=== PATIENT | female | born 1950 | race Caucasian/White ===

== ENCOUNTER 2017-08-21 09:40 | Day surgery (SDC) | payer OTHER ==
[~2017-08-21 09:40] MED LIST: LEVSOD75 PO
[2017-08-24] MEDS ORDERED: IBUP800 PO (14:38)
== END 2017-08-21 23:12 | disposition home or self-care (01) ==
LOC: MOI MAM 09:40
PROC: BH01ZZZ Plain Radiography of Left Breast (ICD-10-PCS; principal; 2017-08-21)
DX: D05.12 Intraductal carcinoma in situ of left breast (principal)
CPT/HCPCS: 19281

== ENCOUNTER 2017-08-27 08:11 | Day surgery (SDC) | payer OTHER ==
[~2017-08-27] VITALS: Ht 162.6 cm; Wt 87.1 kg
[~2017-08-27 08:11] MED LIST changes: +IBUP800 PO
== END 2017-08-27 22:44 | disposition home or self-care (01) ==
LOC: ORSCMMR 08:11 → NM 08:11 → ORSCMMR 22:44
PROVIDERS: Surgery
PROC: 07B60ZX Excision of Left Axillary Lymphatic, Open Approach, Diagnostic (ICD-10-PCS; principal; 2017-08-27 11:00)
PROC: 0HBU0ZZ Excision of Left Breast, Open Approach (ICD-10-PCS; principal; 2017-08-27 11:00)
DX: D05.12 Intraductal carcinoma in situ of left breast (principal); D36.0 Benign neoplasm of lymph nodes; E03.9 Hypothyroidism, unspecified; F17.210 Nicotine dependence, cigarettes, uncomplicated; Z79.899 Other long term (current) drug therapy
CPT/HCPCS: 38792; 76098; 88307; 88342; A9520; J0690; J1100; J1885; J2250; J2405; J3010; J7120; Q9968